=== PATIENT | male | born 1940 | race Caucasian/White ===

== ENCOUNTER 2017-10-31 05:23 | Inpatient (IN) | payer OTHER, BC ==
[~2017-10-31] VITALS: Ht 185.4 cm; Wt 111.2 kg
--- NOTE | ~2017-10-31 | EKG ---
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 11/10/17 0804 0937 0937 Porter Phillip MD, [facility] /EPI
--- NOTE | ~2017-10-31 | EKG ---
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 11/03/17 1708 1507 150 Porter Phillip MD, [facility] /EPI
--- NOTE | ~2017-10-31 | 2DMMODE ---
[address] [address] 2 D/M-MODE ECHOCARDIOGRAM Name: PAXTON PEDERSEN Room #: 247-P ADM IN M.R.#: [id number] Admission: 11/03/17 Attend Phys: Markus Dodge, Discharge: Date of : 42 Date of Service: 11/07/17 0822 Report #: [id number] THIS REPORT FOR: //name// APPROVED REPORT Study performed: 11/06/2017 17:38:27 EXAM: Comprehensive 2D, Doppler, and color-flow Echocardiogram Patient Location: Lab Room #: [facility] Status: stat BSA: 2.21 HR: 112 bpm Other Information Study Quality: Adequate Indications Arrhythmia Aortic Valve AoV Peak Kong.: 2.78 m/s AO Peak Gr.: 30.91 mmHg Left Ventricle The left ventricle is normal size. There is normal LV segmental wall motion. Moderate to severe concentric left ventricular hypertrophy. Left ventricular systolic function is normal. The left ventricular ejection fraction is within the normal range. LVEF is 60-65%. Right Ventricle The right ventricle is normal size. Aortic Valve Prosthetic aortic valve. Normal prosthetic aortic valve gradient. No aortic regurgitation is present. Mitral Valve There is mitral annular calcification. Tricuspid Valve The tricuspid valve is normal in structure. There is no tricuspid valve regurgitation noted. [address] [place] [address] 2 D/M-MODE ECHOCARDIOGRAM Name: PAXTON PEDERSEN Room #: 247-P [facility] IN M.R.#: [id number] Admission: 11/03/17 Attend Phys: Markus Dodge, Discharge: Date of : 42 Date of Service: 11/07/17821 Report #: [id number] Pericardium There is no pericardial effusion. <Conclusion> The left ventricle is normal size. Moderate to severe concentric left ventricular hypertrophy. There is normal LV segmental wall motion. LVEF is 60-65%. Prosthetic aortic valve. Normal prosthetic aortic valve gradient. There is no pericardial effusion. <ELECTRONICALLY SIGNED> By: Constantine Kelly MD, FACC 11/07/17821 1 1 Constantine Kelly MD, FACC /INF
--- NOTE | ~2017-10-31 | HC ---
[facility] [place] [address] CONSULTATION Name: PAXTON PEDERSEN Room #: 214-P [facility] IN M.R.#: [id number] Admission: 11/03/17 Attend Phys: Markus Dodge MD Discharge: Date of : 41 Report #: [id number] THIS REPORT FOR: //name// CC: Rico Dodge DATE OF SERVICE: 11/07/2017 INFECTIOUS DISEASE CONSULTATION REASON FOR CONSULTATION: Low-grade fever. ATTENDING PHYSICIAN: Markus Dodge MD. CONSULTATION REQUESTED BY: Beto Bueno MD. HISTORY OF PRESENT ILLNESS: The patient is a 76-year-old white man, found to have heart murmur by nurse practitioner, referred to Dr. Acosta, who requested consultation with Dr. Dodge. The patient undergoes aortic valve replacement with 25 mm Martinez Magna Ease bovine pericardial bioprosthesis, coronary artery bypass grafting x 2 with left radial artery harvesting on 11/03/2017. The patient developed complete heart block yesterday requiring emergent permanent pacemaker. Today, the patient is already extubated, alert, comfortable, mentally clear according to , and previously he was rather confused. The patient denies having pain in the surgical sites. He did complain to his of burning on urination and Molina catheter was irrigated. PAST MEDICAL HISTORY: 1. Diabetes mellitus. 2. Hypertension. 3. Dyslipidemia. 4. Coronary artery disease, aortic stenosis, status post surgical intervention as above. SOCIAL HISTORY: . One biological daughter, who have congenital heart condition. DRUG ALLERGIES: STATINS. MEDICATIONS: Zosyn IV every 8 hours, vancomycin 1 g every 12 hours x 4 doses I believe, p.r.n. ondansetron, p.r.n. hydrocodone, bisacodyl, metoclopramide, potassium supplementation and magnesium supplementation per protocol, insulin lispro, pressors as needed, metformin 1 g p.o. b.i.d. REVIEW OF SYSTEMS: As above. [address] [address] CONSULTATION Name: PAXTON PEDERSEN Room #: 214-P [facility] IN M.R.#: [id number] Admission: 11/03/17 Attend Phys: Markus Dodge MD Discharge: Date of : 41 Report #: [id number] PHYSICAL EXAMINATION: GENERAL: Well-developed man, not toxic looking, no distress. VITAL SIGNS: Temperature maximum 100.5 at 4:00 p.m. yesterday, pulse 74, respirations 25, BP 126/56, height 6 feet 1 inch, weight 240 pounds. HEENMT: Within range. NECK: Supple, no thyromegaly. CHEST: Medial sternotomy wound clean. Left infraclavicular permanent pacemaker wound clean. Left forearm radial artery harvesting wound clean. LUNGS: Few basilar crackles, left base. HEART: S1, S2. No gallop or murmur. ABDOMEN: Soft, no masses or megaly. GENITALIA: Molina catheter in place. RECTAL: Deferred. EXTREMITIES: Right radial artery catheter. No pretibial edema, clubbing, or cyanosis. NEUROLOGIC: Grossly within normal limits. LABORATORY DATA: Sodium 138, potassium 4.1, CO2 29, BUN 35, creatinine 1.1, glucose 231. Lactic acid normal yesterday. WBC up to 20,200 at 5:00 p.m. yesterday, hemoglobin 13.5, platelets 170,000. White blood cell count today is 11,300, hemoglobin 11.6 g/dL, platelets 141,000. ABG is pH 7.47, pCO2 37, pO2 74.3, bicarbonate 24.2. This set of gas is on FIO2 of 40%. MRSA by PCR negative on 10/31/2017. RADIOLOGY EVALUATION: Chest x-ray bases. ASSESSMENT: 1. Fever, undetermined source. 2. Status post aortic valve replacement with bioprosthetic valve and coronary artery bypass x 2 11/03/2017. 3. Permanent pacemaker for complete heart block on 11/06/2017. 4. Azotemia, improved. 5. Leukocytosis, improved. SUGGESTIONS: Repeat MRSA screen. Obtain UA with reflex culture. Few doses of vancomycin and Zosyn and discontinue if continues improvement. Dr. Bueno, thank you for requesting my suggestions. <ELECTRONICALLY SIGNED> By: David Bueno MD 11/09/17 0647 1016 2317 David Bueno MD /nt
--- NOTE | ~2017-10-31 | EKG ---
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
--- NOTE | ~2017-10-31 | EKG ---
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 11/03/17 0820 3 Porter Phillip MD, FACC /EPI
--- NOTE | ~2017-10-31 | EKG ---
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 11/07/17 0851 1628 1628 Porter Phillip MD, [facility] /EPI
--- NOTE | ~2017-10-31 | HC ---
[facility] [address] CONSULTATION Name: PAXTON PEDERSEN Room #: 242-P ADM IN M.R.#: [id number] Admission: 11/03/17 Attend Phys: Markus Dodge MD Discharge: Date of : 42 Report #: [id number] THIS REPORT FOR: //name// CC: Rico Dodge REQUESTING PHYSICIAN: Markus Dodge MD PRIMARY WINE BLENDER: Rico Acosta MD [facility] PRIMARY CARE DOCTOR: Angela Burr DO CHIEF COMPLAINT: Postop open heart surgery. HISTORY OF PRESENT ILLNESS: The patient is a 76-year-old male who underwent elective 2-vessel CABG and aortic valve replacement with Dr. Dodge yesterday. He has a history of severe aortic valve stenosis and underwent aortic valve replacement with a 25 mm Martinez bovine pericardial tissue prosthesis and 2-vessel CABG with a WILCOX to LAD and radial graft in a Y graft fashion to diagonal coronary artery. He has normal LV function. Clinically, he is doing well. He has already been extubated and is taking p.o. He is sitting in a chair. He is in a sinus rhythm on amiodarone. He was hypertensive postoperatively and required Cardene, which has since been turned off. He denies headaches, blurry vision, slurred speech, numbness, extremity numbness, weakness or chest pain. He does have chest wall pain. He had a chest x-ray this morning, which demonstrated normal cardiopulmonary findings postoperatively. PAST MEDICAL HISTORY: Coronary artery disease, aortic valve stenosis, statin intolerance, hyperlipidemia, diabetes mellitus type 2, hypertension. SOCIAL HISTORY: He is a nonsmoker. ALLERGIES: STATINS apparently caused nausea. HOME MEDICATIONS: Include calcium carbonate, glyburide 10 mg in the daytime and 5 mg in the evening. He is on Levemir 25 units daily. He is on metformin 1 gram p.o. b.i.d., Toprol-XL, which he takes b.i.d. 25 mg. REVIEW OF SYSTEMS: GASTROINTESTINAL: Denies abdominal pain, nausea, vomiting, hematemesis or melena. He has not had a bowel movement. [facility] [address] [place] [address] CONSULTATION Name: PAXTON PEDERSEN Room #: 242-P [facility] IN ..#: [id number] Admission: 11/03/17 Attend Phys: Markus Dodge MD Discharge: Date of : 41 Report #: [id number] PULMONARY: Has no history of obstructive lung disease or asthma. NEUROLOGIC: Denies slurred speech. HEMATOLOGIC: No anemia or bleeding disorders. RENAL: No history of kidney failure. ENDOCRINE: Positive diabetes, positive hyperlipidemia. CARDIOVASCULAR: Positive shortness of breath, no chest discomfort, no orthopnea, no PND, no edema. No history of arrhythmia. ALLERGIES: Denies any aspirin or contrast allergies. THROAT: Denies any dysphagia. EYES: Denies ANY visual changes. SKIN: No rashes. PHYSICAL EXAMINATION: VITAL SIGNS: Blood pressure 105/60 in sinus rhythm, heart rate 75, O2 sat is 99% on O2 per nasal cannula. GENERAL: This is a pleasant elderly male. He is alert, sitting in a chair, no apparent distress. HEENT: Eyes: EOMs intact. No facial asymmetry. NECK: Supple. No jugular venous distention. There is a right IJ triple lumen catheter, which has clean site with no bleeding or swelling. CARDIOVASCULAR: Regular. There is no rub or gallop. There is no murmur. LUNGS: Diminished breath sounds bilaterally, but clear to auscultation. SKIN: Clean, dry dressing over his sternal incision. ABDOMEN: Nontender, nondistended. EXTREMITIES: Distal extremities are warm. He is wearing SCDs. Telemetry demonstrates a sinus rhythm, normal ST segments. LABORATORY DATA: Hemoglobin is 12.1, white blood cell count is 13.6, platelet count is 140,000. Sodium is 141, potassium is 4.1, chloride is 106, CO2 is 29, BUN 16, creatinine is 1.0, glucose is 133. INR is 1.2. Chest x-ray shows poor, but improved inspiration, borderline cardiomegaly, moderate widening of the mediastinum, which was actually improved from prior study yesterday. No pneumothorax. IMPRESSION: 1. Coronary artery disease, status post 2-vessel coronary artery bypass graft. He is postoperative day 1 and doing well hemodynamically. He is taking p.o. and demonstrates a sinus rhythm. We will continue with p.o. amiodarone for atrial fibrillation prevention. 2. Status post aortic valve replacement. He has tissue prosthesis and will begin warfarin upon discharge. For the time being, he is currently on aspirin. 3. Hypertension. This is stable. We will monitor this closely and resume his beta melisa at some point when he is taking p.o. more consistently. 4. Diabetes mellitus. He is followed by our hospitalist colleagues for diabetic management. Currently, he is on insulin. [facility] [address] [place] [address] CONSULTATION Name: PAXTON PEDERSEN Room #: 242-P ADM IN M.R.#: [id number] Admission: 11/03/17 Attend Phys: Markus Dodge MD Discharge: Date of : 41 Report #: [id number] 5. Hyperlipidemia. He apparently is statin intolerant with an allergy, but perhaps he can be started on Zetia at a later date. By: 0833 1212 Constantine Kelly MD, FACC /nt
--- NOTE | ~2017-10-31 | P ---
[facility] [place] [address] PROCEDURE REPORT Name: PAXTON PEDERSEN Room #: 214-P [facility] IN M.R.#: [id number] Admission: 11/03/17 Attend Phys: Markus Dodge MD Discharge: 11/11/17 Date of : 41 Report #: [id number] THIS REPORT FOR: //name// CC: Rico Dodge PROCEDURE: Pacemaker insertion. PREOPERATIVE DIAGNOSIS: Complete heart block. POSTOPERATIVE DIAGNOSIS: Complete heart block. HISTORY OF PRESENT ILLNESS: The patient is a 76-year-old who is status post CABG and mitral valve replacement with a bioprosthetic valve, who tonight developed complete heart block with no underlying rhythm. He required a transcutaneous pacing that was partially successful. He is here for temporary wire placement and a dual-chamber pacemaker insertion. ANESTHESIA: The patient was already under general anesthesia prior to initiation of the procedure. DESCRIPTION OF PROCEDURE: The patient was emergently taken to the catheterization laboratory technician in the middle of a code situation. The patient was brought to the EP laboratory and was pacing transcutaneously, which was intermittently capturing. I did happen to speak to his prior to performing the procedure and discussed the details of the procedure, including the risks which included but not limited to bleeding, infection, vascular damage, cardiac perforation and pneumothorax. He understood these risks and was willing for me to proceed emergently. As such, I obtained access to the right femoral vein x 1 and placed a short sheath using the modified Seldinger technique. I then advanced a quadripolar catheter into the right ventricular apex and performed apical pacing with good thresholds. As such, I was now able to turn off external pacing. The patient was then prepped in a sterile fashion. A venogram was performed, showing patency of the left axillary vein. IV vancomycin was administered. The patient was prepped in a sterile fashion. I then injected lidocaine below the level of the left clavicle. Incision was made, pocket was created over the prepectoral fascia and access was obtained twice to the left axillary vein using the extrathoracic approach. Leads were positioned in the right ventricular apex and right atrial appendage, both with adequate pacing and sensing thresholds, and the leads were sutured to the prepectoral fascia. The device was connected to the leads. The pocket was irrigated with vancomycin and then the pocket was closed in 3 layers using 2-0 for the deep layer, 3-0 for the mid layer and 4-0 for the subcuticular stitch. Surgical glue was placed to the outer skin layer. The patient was stable post-procedure, with stable blood pressures and remained intubated. There were no intra-procedure complications and there was 10 mL of [facility] [address] [address] PROCEDURE REPORT Name: NUVIAPAXTON E Room #: 214-P [facility] IN M.R.#: [id number] Admission: 11/03/17 Attend Phys: Markus Dodge MD Discharge: 11/11/17 Date of : 41 Report #: [id number] blood loss. While I was closing the pocket, the temporary pacing wire was pulled under fluoroscopy. There was no displacement of the pacing leads. The implanted pacemaker was a [employer] model #[id number], serial #[id number]. The atrial lead was [employer] model #2088TC, 52 cm, serial #[id number] with a P-wave of 1.2 millivolts, pacing impedance of 380 ohms and a pacing threshold of 0.75 volts at 0.4 milliseconds. The RV lead was [employer] model #2088TC, 58 cm, serial #[id number]. The RV lead demonstrated an R-wave of 7.3 millivolts, pacing impedance of 480 ohms and the pacing threshold 0.5 volts at 1 millisecond. The pacemaker was programmed to the DDD 60-130 mode. CONCLUSIONS: 1. Successful emergent placement of a temporary pacing wire for complete heart block, with no underlying rhythm. 2. Successful dual-chamber pacemaker insertion. 3. Satisfactory atrial and ventricular pacing and sensing thresholds. <ELECTRONICALLY SIGNED> By: Beto Bueno MD 11/13/17 0827 1927 0025 Beto Bueno MD /nt
--- NOTE | ~2017-10-31 | HC ---
[facility] [place] [address] CONSULTATION Name: PAXTON PEDERSEN Room #: 214-P [facility] IN ..#: [id number] Admission: 11/03/17 Attend Phys: Markus Dodge MD Discharge: 11/11/17 Date of : 41 Report #: [id number] THIS REPORT FOR: //name// CC: Rico Dodge ELECTROPHYSIOLOGY CONSULTATION REASON FOR CONSULTATION: Acute complete heart block. HISTORY OF PRESENT ILLNESS: The patient is a 76-year-old with a history of aortic stenosis and coronary artery disease who underwent elective bioprosthetic AVR and CABG on 11/03/2017. He was doing well and was recovering nicely. His EKG had been stable and therefore his temporary pacing wires were pulled today. This evening, I was called after the patient went into a complete heart block with no underlying ventricular escape rhythm. He required CPR, intubation and external pacing. He has periods of conduction with periods of asystole. Currently during my evaluation, he still requires intermittent pacing. PAST MEDICAL HISTORY: Includes coronary artery disease, aortic stenosis, hyperlipidemia, diabetes, and hypertension. SOCIAL HISTORY: He does not smoke. FAMILY HISTORY: Noncontributory. ALLERGIES: INCLUDES STATINS. MEDICATIONS: Have been reviewed. He has had some aspirin, metoprolol, amiodarone, Lasix, insulin. REVIEW OF SYSTEMS: Unable to obtain. PHYSICAL EXAMINATION: VITAL SIGNS: Temp is 36.9, T-max 38.1, pulse 70, respiratory rate 18, blood pressure 106/57, sats 100%. GENERAL: He is intubated and sedated in the middle of a code. HEART: Regular rate and rhythm when paced. EXTREMITIES: No lower extremity edema. LABORATORY DATA: A pH 7.3, pCO2 of 37, pO2 of 216. White count 20, hemoglobin 13, platelets 170. Sodium 133, potassium 3.6, BUN 37, creatinine 1.8, magnesium 2.5. EKG and telemetry shows periods of complete heart block and asystole. Chest x-ray shows no significant findings post extubation. ASSESSMENT AND PLAN: Complete heart block requiring external pacing. In [facility] [address] [place] [address] CONSULTATION Name: PAXTON PEDERSEN Room #: 214-P [facility] IN .R.#: [id number] Admission: 11/03/17 Attend Phys: Markus Dodge MD Discharge: 11/11/17 Date of : 41 Report #: [id number] summary, the patient is a 76-year-old with complete heart block. We will start by placing a temporary pacing wire and it appears he will need a permanent pacemaker placed. We will continue with IV antibiotics and continue to follow the patient postoperatively. This procedure is being performed semi-emergently after discussing the care with Dr. Dodge. <ELECTRONICALLY SIGNED> By: Beto Bueno MD 11/13/17 0827 1736 0037 Beto Bueno MD /karla
--- NOTE | ~2017-10-31 | O ---
[facility] [place] [address] OPERATIVE REPORT Name: PAXTON PEDERSEN Room #: 242-P ADM IN M.R.#: [id number] Admission: 11/03/17 Attend Phys: Markus Dodge MD Discharge: Date of : 41 Report #: [id number] THIS REPORT FOR: //name// CC: Rico Dodge DATE OF SERVICE: 11/03/2017 PREOPERATIVE DIAGNOSES: 1. Aortic stenosis, severe. 2. Coronary artery disease. FINAL DIAGNOSES: 1. Aortic stenosis, severe. 2. Coronary artery disease. OPERATIVE PROCEDURE PERFORMED: 1. Aortic valve replacement with 25 mm Martinez Magna Ease bovine pericardial bioprosthesis. 2. Coronary artery bypass grafting x 2 with WILCOX to the LAD, a radial artery Y graft to diagonal vessel. 3. Left radial artery harvest. SURGEON: Markus Dodge MD ARM REST BUILDER: ALTAGRACIA Kat. ANESTHESIA: General. OPERATIVE INDICATIONS: The patient is a 76-year-old male who presented with symptoms of severe dyspnea on exertion and fatigue. The patient has undergone evaluation with echocardiography showing evidence of severe aortic stenosis. He was found to have concomitant coronary artery disease involving the LAD and diagonal vessel. There was also poor filling of the PDA by collaterals from the left, but it was unclear if a bypassable vessel was present. The patient is admitted at this time and brought to the operating room now for aortic valve replacement and concomitant coronary artery bypass grafting. OPERATIVE SUMMARY: The patient brought to the operating room, placed on the OR table in supine position. After anesthesia was induced via the general endotracheal route and monitoring lines had been positioned, the patient was prepped and draped in a sterile fashion with chlorhexidine. I first performed radial artery harvest from the left forearm using a Harmonic scalpel. This incision was closed in standard fashion in 3 layers. I then performed median [facility] [address] [place] [address] OPERATIVE REPORT Name: PAXTON PEDERSEN Room #: 242-P [facility] IN [facility].#: [id number] Admission: 11/03/17 Attend Phys: Markus Dodge MD Discharge: Date of : 41 Report #: [id number] sternotomy incision and the left internal mammary artery was harvested in standard fashion. I then opened the pericardium and systemically anticoagulated the patient with heparin, cannulae were placed in ascending aorta and the right atrium. An antegrade cardioplegic cannula was positioned and cardiopulmonary bypass was begun. A retrograde cardioplegic cannula was positioned and then under low flow conditions the aorta was cross clamped, the heart was arrested with cold antegrade cardioplegia approximately 1 liter followed by 500 mL cold retrograde cardioplegia. This was augmented with topical ice slush. Diastolic arrest was achieved and maintained throughout this operation with intermittent doses of cold antegrade and retrograde cardioplegia as well as cardioplegia given down grafts and topical ice slush. We first examined the PDA. We found this vessel to be heavily calcified and sclerotic and unapproachable for bypass. I then turned my attention to the diagonal vessel. It was a nice soft vessel. I opened at least 2 mm in size, a distal anastomosis was carried out in end-to-side fashion with 7-0 Prolene utilizing the radial artery. Next, we turned our attention to the aortic valve. A transverse aortotomy was created 1-2 cm above the right coronary artery takeoff. We exposed the aortic valve. There was severe calcific aortic stenosis present. The valve leaflets were excised. The annulus was debrided of significant calcium. We then measured the valve and felt that a 25 mm bovine pericardial Magna Ease bioprosthesis would be appropriate. A 2-0 Ethibond sutures were then placed in the annulus circumferentially from the ventricular to the aortic side of the annulus. These sutures were then brought up through the sewing rim of the valve, the valve was seated and the sutures were secured in place using Cor-Knots. The aortotomy was closed in 2 layers with running 4-0 Prolene suture. Next, the WILCOX was brought into the field. The LAD was opened. It was a large vessel, greater than 2.5 mm in size. A distal anastomosis was carried out in the end-to-side fashion with 7-0 Prolene. We then constructed an end-to-side anastomosis of the radial artery graft to the WILCOX after a WILCOX arteriotomy was made. This was done with 7-0 Prolene as well. Warm cardioplegia was then given both retrograde and antegrade. The patient was placed in steep Trendelenburg and de-airing maneuvers were performed while retrograde and antegrade warm cardioplegia were given. This was performed with an 18 gauge needle through the left ventricular apex. Blood was held in the heart and lungs were ventilated during these episodes. Under low flow conditions the aortic crossclamp was released to begin the period of reperfusion and similar de-airing maneuvers were performed yet again and then the patient was placed in the supine position. Atrial and ventricular pacing wires were placed and the patient was rewarmed past 37 degree centigrade. Three successive doses of calcium and single dose of magnesium were given over 3-5 minute intervals. Lungs were reinflated. The patient was allowed to eject and we found appropriate de-airing on NURY. We then removed the aortic root vent and then weaned the patient from cardiopulmonary bypass without inotropic support. Protamine was given to reverse the heparin, decannulation was effected. Once satisfactory hemostasis was achieved, we placed two 32-[place] chest tubes in [facility] [address] [place] [address] OPERATIVE REPORT Name: PAXTON PEDERSEN Room #: 242-P ADM IN M.R.#: [id number] Admission: 11/03/17 Attend Phys: Markus Dodge MD Discharge: Date of : 41 Report #: [id number] anterior mediastinum and 24 Lorenzo drain in left pleural space. They were all brought through separate stab incisions. The sternum was closed with #7 wire. The fascia, subcutaneous and skin were closed in multiple layers with absorbable suture. The procedure completed, the patient was taken to the ICU in stable condition. Cardiopulmonary bypass time and crossclamp times are not available to me at the time of this dictation. By: [id number] /nt
[2017-10-31 12:44] LABS: URINE BILIRUBIN NEGATIVE (Negative); URINE BLOOD NEGATIVE (Negative); URINE CLARITY CLEAR; URINE COLOR YELLOW; URINE GLUCOSE-RANDOM* 1+ (Negative); URINE KETONES NEGATIVE (Negative); URINE LEUKOCYTES-REFLEX NEGATIVE (Negative); URINE NITRITE-REFLEX NEGATIVE (Negative); URINE PROTEIN (DIPSTICK) NEGATIVE (Negative); URINE SPECIFIC GRAVITY 1.025 (1.005-1.035); URINE UROBILINOGEN 0.2 E.U./dl (0.2-1.0)
[2017-10-31 12:46] LABS: ABSOLUTE NEUTROPHILS 4.3 thou/uL (1.4-8.2); EOSINOPHILS 2.5 % (0.0-3.0); HEMATOCRIT 43.3 % (42.0-52.0); LYMPHOCYTES 30.1 % (24.0-44.0); MCH 32.3 pg (26.0-34.0); MCHC 34.7 g/dL (28.0-37.0); MCV 93.1 fL (80.0-100.0); MONOCYTES 7.4 % (1.0-8.0); PLATELET COUNT 205 thou/uL (150-400); RBC 4.65 mil/uL (4.50-6.00); RDW 13.8 % (10.5-14.5); WBC 7.2 thou/uL (4.0-11.0)
[2017-10-31 13:01] LABS: APTT 28.5 Seconds (24.5-32.8); CALCIUM 9.3 mg/dL (8.5-10.1); CREATININE 1.1 mg/dL (0.7-1.3); INR 1.1; POTASSIUM 4.3 mmol/L (3.5-5.1); PROTIME 11.1 Seconds (9.3-11.4); TOTAL BILIRUBIN 0.5 mg/dL (<0.1-1.0); TOTAL PROTEIN 8.2 g/dL (6.4-8.2)
[2017-10-31 23:07] LABS: GLYCOHEMOGLOBIN (HGB A1C) 7.4 % (4.8-5.6)
[2017-11-03] VITALS (12 sets, daily range): BP systolic 89–169; BP diastolic 54–80
[2017-11-03 13:13] LABS: HEMATOCRIT 33.2 % (42.0-52.0); MCH 32.2 pg (26.0-34.0); MCHC 34.5 g/dL (28.0-37.0); MCV 93.4 fL (80.0-100.0); RBC 3.56 mil/uL (4.50-6.00); RDW 13.7 % (10.5-14.5)
[2017-11-03 13:14] LABS: HEMOGLOBIN 11.5 gm/dL (14.0-18.0)
[2017-11-03 13:28] LABS: APTT 24.5 Seconds (24.5-32.8); FIBRINOGEN 190.9 mg/dL (210-360); INR 1.4
[2017-11-03 14:03] LABS: POC BE 2 mmol/L (-2.0 to +3.0); POC CA IONIZED 4.7 mg/dL (4.5-5.3); POC GLUCOSE 154 mg/dL (70-99); POC HCO3 27.3 mmol/L (22.0-26.0); POC HEMOGLOBIN 11.2 g/dL (14.0-18.0); POC POTASSIUM 4.4 mmol/L (3.5-5.1); POC SODIUM 141 mmol/L (136-145); POC pCO2 44.4 mmHg (35.0-45.0); POC pH 7.397 (7.360-7.450)
[2017-11-03 14:03] LABS: POC BE 1 mmol/L (-2.0 to +3.0); POC CA IONIZED 6.3 mg/dL (4.5-5.3); POC GLUCOSE 146 mg/dL (70-99); POC HCO3 25.3 mmol/L (22.0-26.0); POC HEMOGLOBIN 10.9 g/dL (14.0-18.0); POC POTASSIUM 3.9 mmol/L (3.5-5.1); POC SODIUM 141 mmol/L (136-145); POC pCO2 38.5 mmHg (35.0-45.0); POC pH 7.425 (7.360-7.450)
[2017-11-03 14:03] LABS: POC BE 3 mmol/L (-2.0 to +3.0); POC CA IONIZED 4.8 mg/dL (4.5-5.3); POC GLUCOSE 145 mg/dL (70-99); POC HCO3 28.2 mmol/L (22.0-26.0); POC HEMOGLOBIN 11.2 g/dL (14.0-18.0); POC POTASSIUM 4.3 mmol/L (3.5-5.1); POC SODIUM 143 mmol/L (136-145); POC pCO2 49.5 mmHg (35.0-45.0); POC pH 7.364 (7.360-7.450)
[2017-11-03 14:03] LABS: POC BE 1 mmol/L (-2.0 to +3.0); POC CA IONIZED 4.8 mg/dL (4.5-5.3); POC GLUCOSE 184 mg/dL (70-99); POC HCO3 26.5 mmol/L (22.0-26.0); POC HEMOGLOBIN 12.2 g/dL (14.0-18.0); POC POTASSIUM 4.5 mmol/L (3.5-5.1); POC SODIUM 140 mmol/L (136-145)
[2017-11-03 14:03] LABS: POC BE 0 mmol/L (-2.0 to +3.0); POC CA IONIZED 6.1 mg/dL (4.5-5.3); POC GLUCOSE 126 mg/dL (70-99); POC HCO3 24.2 mmol/L (22.0-26.0); POC HEMOGLOBIN 11.2 g/dL (14.0-18.0); POC POTASSIUM 3.8 mmol/L (3.5-5.1); POC SODIUM 142 mmol/L (136-145); POC pCO2 37.6 mmHg (35.0-45.0); POC pH 7.417 (7.360-7.450)
[2017-11-03 14:03] LABS: POC BE 1 mmol/L (-2.0 to +3.0); POC CA IONIZED 4.4 mg/dL (4.5-5.3); POC GLUCOSE 170 mg/dL (70-99); POC HCO3 26.5 mmol/L (22.0-26.0); POC HEMOGLOBIN 10.9 g/dL (14.0-18.0); POC POTASSIUM 4.7 mmol/L (3.5-5.1); POC SODIUM 139 mmol/L (136-145); POC pCO2 44.8 mmHg (35.0-45.0)
[2017-11-03 14:03] LABS: POC BE 2 mmol/L (-2.0 to +3.0); POC CA IONIZED 4.7 mg/dL (4.5-5.3); POC GLUCOSE 146 mg/dL (70-99); POC HCO3 26.7 mmol/L (22.0-26.0); POC HEMOGLOBIN 10.5 g/dL (14.0-18.0); POC POTASSIUM 4.2 mmol/L (3.5-5.1); POC SODIUM 142 mmol/L (136-145); POC pCO2 40.1 mmHg (35.0-45.0); POC pH 7.431 (7.360-7.450)
[2017-11-03 14:03] LABS: POC BE 2 mmol/L (-2.0 to +3.0); POC CA IONIZED 4.7 mg/dL (4.5-5.3); POC GLUCOSE 151 mg/dL (70-99); POC HCO3 26.6 mmol/L (22.0-26.0); POC HEMOGLOBIN 10.9 g/dL (14.0-18.0); POC SODIUM 143 mmol/L (136-145); POC pCO2 41.5 mmHg (35.0-45.0); POC pH 7.415 (7.360-7.450)
[2017-11-03 14:03] LABS: POC BE 3 mmol/L (-2.0 to +3.0); POC GLUCOSE 233 mg/dL (70-99); POC HCO3 28.6 mmol/L (22.0-26.0); POC HEMOGLOBIN 13.3 g/dL (14.0-18.0); POC POTASSIUM 4.9 mmol/L (3.5-5.1); POC SODIUM 139 mmol/L (136-145); POC pCO2 48.9 mmHg (35.0-45.0); POC pH 7.375 (7.360-7.450)
[2017-11-03 14:34] LABS: HEMATOCRIT 36.9 % (42.0-52.0); HEMOGLOBIN 12.3 gm/dL (14.0-18.0); MCH 31.5 pg (26.0-34.0); MCHC 33.5 g/dL (28.0-37.0); MCV 94.2 fL (80.0-100.0); RBC 3.92 mil/uL (4.50-6.00); RDW 13.8 % (10.5-14.5); WBC 14.3 thou/uL (4.0-11.0)
[2017-11-03 14:48] LABS: CALCIUM 9.5 mg/dL (8.5-10.1); CREATININE 1.1 mg/dL (0.7-1.3); MAGNESIUM 1.7 mg/dL (1.8-2.4); POTASSIUM 4.4 mmol/L (3.5-5.1)
[2017-11-03 14:49] LABS: APTT 28.5 Seconds (24.5-32.8); INR 1.2; PROTIME 12.3 Seconds (9.3-11.4)
[2017-11-03 14:50] LABS: BE(vivo) -3.7 mmol/L (-2 to +3); HCO3 22.7 mmol/L (22.0-26.0); PCO2 46.3 mmHg (35.0-45.0); PO2 70.7 mmHg (80.0-100.0); pH 7.308 (7.360-7.450); sO2 92.7 % (92.0-98.0)
[2017-11-03 17:28] LABS: BE(vivo) -2.8 mmol/L (-2 to +3); HCO3 22.2 mmol/L (22.0-26.0); PCO2 39.3 mmHg (35.0-45.0); PO2 114.6 mmHg (80.0-100.0); pH 7.369 (7.360-7.450); sO2 98.1 % (92.0-98.0)
[2017-11-03 18:42] LABS: HEMATOCRIT 33.2 % (42.0-52.0)
[2017-11-03 19:17] LABS: HEMOGLOBIN 11.3 gm/dL (14.0-18.0)
[2017-11-03 21:14] LABS: BE(vivo) -2.8 mmol/L (-2 to +3); HCO3 22.7 mmol/L (22.0-26.0); PCO2 42.1 mmHg (35.0-45.0); PO2 89.3 mmHg (80.0-100.0); pH 7.349 (7.360-7.450); sO2 96.4 % (92.0-98.0)
[2017-11-03 22:02] LABS: BE(vivo) -2.7 mmol/L (-2 to +3); HCO3 22.2 mmol/L (22.0-26.0); PCO2 39.1 mmHg (35.0-45.0); pH 7.373 (7.360-7.450); sO2 94.8 % (92.0-98.0)
[2017-11-04] VITALS (134 sets, daily range): BP systolic 86–124; BP diastolic 53–89
[2017-11-04 05:23] LABS: HEMATOCRIT 35.9 % (42.0-52.0); HEMOGLOBIN 12.1 gm/dL (14.0-18.0); MCH 31.6 pg (26.0-34.0); MCHC 33.7 g/dL (28.0-37.0); MCV 93.7 fL (80.0-100.0); RBC 3.83 mil/uL (4.50-6.00); WBC 13.6 thou/uL (4.0-11.0)
[2017-11-04 05:34] LABS: CALCIUM 9.1 mg/dL (8.5-10.1); MAGNESIUM 1.8 mg/dL (1.8-2.4); POTASSIUM 4.1 mmol/L (3.5-5.1)
[2017-11-05] VITALS (22 sets, daily range): BP systolic 96–130; BP diastolic 59–77
[2017-11-05 05:59] LABS: HEMATOCRIT 34.6 % (42.0-52.0); HEMOGLOBIN 11.6 gm/dL (14.0-18.0); MCH 31.6 pg (26.0-34.0); MCHC 33.4 g/dL (28.0-37.0); MCV 94.4 fL (80.0-100.0); RBC 3.67 mil/uL (4.50-6.00); RDW 13.8 % (10.5-14.5); WBC 14.8 thou/uL (4.0-11.0)
[2017-11-05 06:11] LABS: CREATININE 1.2 mg/dL (0.7-1.3); POTASSIUM 4.6 mmol/L (3.5-5.1)
[2017-11-06 04:30] VITALS: BP 117/67
[2017-11-06 05:59] LABS: HEMATOCRIT 35.7 % (42.0-52.0); HEMOGLOBIN 12.1 gm/dL (14.0-18.0); MCH 31.8 pg (26.0-34.0); MCHC 33.9 g/dL (28.0-37.0); MCV 93.8 fL (80.0-100.0); RBC 3.81 mil/uL (4.50-6.00); RDW 13.6 % (10.5-14.5); WBC 13.4 thou/uL (4.0-11.0)
[2017-11-06 06:00] LABS: CALCIUM 8.8 mg/dL (8.5-10.1); CREATININE 1.2 mg/dL (0.7-1.3); POTASSIUM 4.5 mmol/L (3.5-5.1)
[2017-11-06 08:00] VITALS: BP 110/70
[2017-11-06 12:00] VITALS: BP 125/71
[2017-11-06 16:00] VITALS: BP 106/57
[2017-11-06 17:08] LABS: HEMATOCRIT 40.6 % (42.0-52.0); HEMOGLOBIN 13.5 gm/dL (14.0-18.0); MCH 31.5 pg (26.0-34.0); MCHC 33.1 g/dL (28.0-37.0); MCV 95.2 fL (80.0-100.0); RBC 4.27 mil/uL (4.50-6.00); WBC 20.2 thou/uL (4.0-11.0)
[2017-11-06 17:15] LABS: CALCIUM 9.2 mg/dL (8.5-10.1); CREATININE 1.8 mg/dL (0.7-1.3); POTASSIUM 3.6 mmol/L (3.5-5.1)
[2017-11-06 17:16] LABS: MAGNESIUM 2.5 mg/dL (1.8-2.4)
[2017-11-06 17:18] LABS: BE(vivo) -2.5 mmol/L (-2 to +3); PCO2 37.1 mmHg (35.0-45.0); PO2 216.2 mmHg (80.0-100.0); pH 7.391 (7.360-7.450); sO2 99.4 % (92.0-98.0)
[2017-11-06 20:52] LABS: BE(vivo) 1.1 mmol/L (-2 to +3); HCO3 25.8 mmol/L (22.0-26.0); PCO2 41.4 mmHg (35.0-45.0); PO2 98.9 mmHg (80.0-100.0); pH 7.412 (7.360-7.450); sO2 97.6 % (92.0-98.0)
[2017-11-06 22:11] LABS: BE(vivo) 1.4 mmol/L (-2 to +3); HCO3 25.8 mmol/L (22.0-26.0); PO2 108.6 mmHg (80.0-100.0); pH 7.427 (7.360-7.450); sO2 98.1 % (92.0-98.0)
[2017-11-07 03:17] LABS: BE(vivo) 4.5 mmol/L (-2 to +3); HCO3 28.5 mmol/L (22.0-26.0); PCO2 40.2 mmHg (35.0-45.0); PO2 77.8 mmHg (80.0-100.0); pH 7.468 (7.360-7.450); sO2 96.2 % (92.0-98.0)
[2017-11-07 05:30] LABS: BE(vivo) 3.2 mmol/L (-2 to +3); HCO3 26.8 mmol/L (22.0-26.0); PCO2 37.3 mmHg (35.0-45.0); PO2 74.3 mmHg (80.0-100.0); pH 7.474 (7.360-7.450); sO2 95.8 % (92.0-98.0)
[2017-11-07 05:36] LABS: CALCIUM 8.5 mg/dL (8.5-10.1); CREATININE 1.1 mg/dL (0.7-1.3); POTASSIUM 4.1 mmol/L (3.5-5.1)
[2017-11-07 05:37] LABS: HEMOGLOBIN 11.6 gm/dL (14.0-18.0); MCH 31.7 pg (26.0-34.0); MCHC 34.1 g/dL (28.0-37.0); RBC 3.66 mil/uL (4.50-6.00); RDW 13.8 % (10.5-14.5); WBC 11.3 thou/uL (4.0-11.0)
[2017-11-07 12:27] VITALS: BP 98/66
[2017-11-07 13:12] LABS: URINE BILIRUBIN NEGATIVE (Negative); URINE BLOOD 2+ (Negative); URINE CLARITY CLEAR; URINE COLOR YELLOW; URINE GLUCOSE-RANDOM* 1+ (Negative); URINE KETONES NEGATIVE (Negative); URINE LEUKOCYTES-REFLEX NEGATIVE (Negative); URINE NITRITE-REFLEX NEGATIVE (Negative); URINE PROTEIN (DIPSTICK) NEGATIVE (Negative); URINE SPECIFIC GRAVITY 1.015 (1.005-1.035); URINE UROBILINOGEN 0.2 E.U./dl (0.2-1.0)
[2017-11-07 13:46] LABS: URIC ACID CRYSTALS >10 Many /LPF (None Seen)
[2017-11-07 13:47] LABS: BACTERIA-REFLEX 1-9 Few /HPF (None Seen); CASTS None Seen /LPF (None Seen); SQUAMOUS None Seen /LPF (0-3); URINE RBC 0-2 Rare /HPF (0-2); URINE WBC-REFLEX None Seen /HPF (0-5)
[2017-11-07 15:00] VITALS: BP 110/62
[2017-11-07 15:59] VITALS: BP 103/65
[2017-11-07 19:48] VITALS: BP 107/73
[2017-11-08] VITALS (7 sets, daily range): BP systolic 105–166; BP diastolic 62–96
[2017-11-08 16:43] LABS: HEMATOCRIT 37.5 % (42.0-52.0); HEMOGLOBIN 12.5 gm/dL (14.0-18.0); MCH 31.4 pg (26.0-34.0); MCHC 33.3 g/dL (28.0-37.0); MCV 94.4 fL (80.0-100.0); RBC 3.97 mil/uL (4.50-6.00); RDW 13.9 % (10.5-14.5); WBC 12.4 thou/uL (4.0-11.0)
[2017-11-08 16:54] LABS: CALCIUM 8.7 mg/dL (8.5-10.1); CREATININE 1.5 mg/dL (0.7-1.3)
[2017-11-09 03:48] LABS: MCH 31.7 pg (26.0-34.0)
[2017-11-09 03:51] LABS: HEMATOCRIT 33.1 % (42.0-52.0); MCHC 33.2 g/dL (28.0-37.0); MCV 95.5 fL (80.0-100.0); RBC 3.47 mil/uL (4.50-6.00); RDW 13.8 % (10.5-14.5); WBC 12.6 thou/uL (4.0-11.0)
[2017-11-09 03:56] LABS: CALCIUM 8.2 mg/dL (8.5-10.1); CREATININE 1.3 mg/dL (0.7-1.3); POTASSIUM 3.6 mmol/L (3.5-5.1)
[2017-11-09 04:14] VITALS: BP 122/61
[2017-11-09 08:00] VITALS: BP 108/73
[2017-11-09 11:00] VITALS: BP 124/82
[2017-11-09 15:40] VITALS: BP 93/59
[2017-11-09 19:17] VITALS: BP 99/66
[2017-11-10 03:10] VITALS: BP 128/72
[2017-11-10 04:47] LABS: ABSOLUTE NEUTROPHILS 9.1 thou/uL (1.4-8.2); BASOPHILS 0.8 % (0.0-2.0); EOSINOPHILS 2.7 % (0.0-3.0); HEMATOCRIT 33.4 % (42.0-52.0); HEMOGLOBIN 11.3 gm/dL (14.0-18.0); LYMPHOCYTES 12.2 % (24.0-44.0); MCHC 33.9 g/dL (28.0-37.0); MCV 94.4 fL (80.0-100.0); MONOCYTES 7.3 % (1.0-8.0); PLATELET COUNT 189 thou/uL (150-400); RBC 3.54 mil/uL (4.50-6.00); RDW 13.9 % (10.5-14.5); WBC 11.8 thou/uL (4.0-11.0)
[2017-11-10 04:53] LABS: CALCIUM 8.3 mg/dL (8.5-10.1); CREATININE 1.3 mg/dL (0.7-1.3); POTASSIUM 3.5 mmol/L (3.5-5.1)
[2017-11-10 07:35] VITALS: BP 120/76
[2017-11-10 11:30] VITALS: BP 119/64
[2017-11-10 15:50] VITALS: BP 101/64
[2017-11-10 19:45] VITALS: BP 101/48
[2017-11-11 04:32] VITALS: BP 108/62
[2017-11-11 07:30] VITALS: BP 115/60
[2017-11-11 12:59] VITALS: BP 116/62
[2017-11-11] MEDS ORDERED: NOVOLOG100 UNIT/1 SUBQ (15:13)
[2017-11-11] MEDS ORDERED: PACERONE 200 M200 M1 PO (15:13)
== END 2017-11-11 16:40 | DRG 219 ==
LOC: PRE → ICU 11-03 05:43 → TBA 11-03 05:43 → PRE 11-03 11:56 → ICU 11-03 14:18 → 2N 11-05 17:23 → ICU 11-06 16:41 → 2N 11-07 15:58
PROVIDERS: Hospitalist; Internal Medicine Cardiovascular Disease; Internal Medicine Infectious Disease; Internal Medicine Pulmonary Disease; Nurse Practitioner; Thoracic Surgery (Cardiothoracic Vascular Surgery)
DX: I25.10 Atherosclerotic heart disease of native coronary artery without angina pectoris (principal); J96.01 Acute respiratory failure with hypoxia; I46.9 Cardiac arrest, cause unspecified; I50.31 Acute diastolic (congestive) heart failure; I44.2 Atrioventricular block, complete; K56.7 Ileus, unspecified; I35.0 Nonrheumatic aortic (valve) stenosis; I11.0 Hypertensive heart disease with heart failure; E78.5 Hyperlipidemia, unspecified; E11.9 Type 2 diabetes mellitus without complications; Z79.4 Long term (current) use of insulin; Z79.82 Long term (current) use of aspirin; Z79.899 Other long term (current) drug therapy; Z88.8 Allergy status to other drugs, medicaments and biological substances
CPT/HCPCS: 10078; 10081; 47000; 47001; 47002; 47297; 47335; 47382; 50010; 50249; 50409; 50456; 50497; 50662; 50668; 51301; 52131; 52190; 52314; 53327; 53358; 55022; 56524; 56525; 56526; 56527; 56528; 56529; 56531; 56533; 56534; 56639; 57080; 57082; 57093; 62110; 62900; 62950; 64029; 65002; 65003; 65020; 65040; 65043; 65047; 65090; 83006; 85010

== ENCOUNTER → 2017-10-31 | Outpatient (CLI) | payer OTHER, BC ==
[~2017-10-31] MED LIST: ASPIR-LOW81 MG PO; FIBER TABS625 MG PO; FISH OIL 1,001000 M2 PO; GLYBURIDE 2.52.5 MG PO; GLYBURIDE 5 MG T5 M1 PO; LEVEMIR SUBQ; LISINOPRIL10 MG PO; METFORMIN HCL500 MG PO; MULTIVITAMINS1 EAC7 PO; TOPROL XL25 MG PO
== END ==
LOC: ULTRA 11:29
DX: Z01.818 Encounter for other preprocedural examination (principal); I25.10 Atherosclerotic heart disease of native coronary artery without angina pectoris; I65.23 Occlusion and stenosis of bilateral carotid arteries

== ENCOUNTER 2017-11-11 13:49 | Inpatient (IN) | payer OTHER, BC ==
[~2017-11-11] VITALS: Ht 185.4 cm; Wt 101.5 kg
--- NOTE | ~2017-11-11 | HC ---
[facility] [place] [address] CONSULTATION Name: PAXTON PEDERSEN Room #: 510-P [facility] IN M.R.#: [id number] Admission: 11/11/17 Attend Phys: Rico Calvin MD Discharge: Date of : 41 Report #: [id number] THIS REPORT FOR: //name// CC: Rico Burr ATTENDING PHYSICIAN: Rico Calvin MD FIRST LINE PRODUCTION SUPERVISOR: Adi Washburn, PhD AGE: 76 CLINICAL PRESENTATION: The patient is a 76-year-old male admitted to the rehabilitation unit at [facility] for a comprehensive inpatient rehabilitation program to improve functional mobility, activities of daily living and self-care and mental status secondary to deficits from medical complexity and generalized debility. His assessment includes gait instability, coronary artery disease, status post coronary artery bypass grafting x 2, aortic stenosis, status post aortic valve replacement, complete heart block, status post permanent pacemaker, ileus, hypertension, hyperlipidemia and type 2 diabetes mellitus. A complete description of his medical condition, history and medications can be found in his medical record. Neuropsychological consultation was requested for assistance in the assessment of cognitive and emotional status and to provide recommendations and services. Prior to this most recent admission, the patient reports living independently in his own home. He is retired and . 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 He had two children. His daughter at age 28 from heart disease. His son is living and supportive. He does not report a prior history of alcohol or drug abuse. In fact, the patient indicates he has never had any alcohol or tobacco throughout his life. TECHNIQUES UTILIZED: Clinical interview, review of medical records, staff consultation and behavioral observation, mini mental status exam 2 standard version, clock drawing and verbal fluency assessment. EXAMINATION FINDINGS: The patient was alert and cooperative with the assessment. He accurately described events surrounding his admission. There is no evidence of aphasia. His thoughts are logical and goal oriented. There is no evidence of thought disorder. He does not report hallucinations or suicidal ideation. He describes his symptoms to include tiredness and fatigue along with sleep disturbance. Cognition is described as within normal limits. Performance on the MMSE 2 brief version is within normal limits with a raw score of 14 of 16. The patient had difficulty with immediate recall with only remembering 1/3 items after a brief time delay and distraction. He was oriented to time and place. The initial registration was within normal limits. [address] [address] CONSULTATION Name: PAXTON PEDERSEN Room #: 510-P [facility] IN [facility]#: [id number] Admission: 11/11/17 Attend Phys: Rico Calvin MD Discharge: Date of : 41 Report #: [id number] His performance on the MMSE 2 standard version is within normal limits with a raw score of 27 of 30. The patient had difficulty with visual spatial construction. Performance in verbal fluency was extremely low. Letter fluency was a T score of 19, which is less than 1%. Category fluency was a T score of 27, which is at the 1st percentile. Total fluency was a T score of 19, which is less than 1%. While the patient is alert and oriented, deficits in verbal fluency suggest executive dysfunction. DIAGNOSTIC IMPRESSION: Neurocognitive disorder-- extent to be determined, primarily in executive functioning and immediate recall. RECOMMENDATIONS: Consider speech therapy consultation for assistance with cognitive rehabilitation. The patient may benefit from a more comprehensive neuropsychological assessment following discharge to clarify cognitive functioning. He was independent with all instrumental activities of daily living prior to his admission. While the patient is alert and oriented, he is presenting with deficits in immediate recall and executive functioning, which may interfere with a complete return to his previous level of independence. Neuropsychological testing following his discharge will be helpful in determining his strengths and weaknesses and ability to return to previous level of functioniong. Thank you very much for allowing me to provide the consultation on this patient. <ELECTRONICALLY SIGNED> By: Adi Washburn, PhD 11/17/17 1844 1401 27 Adi Washburn, PhD /nt
--- NOTE | ~2017-11-11 | H ---
[facility] [place] [address] HISTORY AND PHYSICAL Name: PAXTON PEDERSEN Room #: 510-P ADM IN M.R.#: [id number] Admission: 11/11/17 Attend Phys: Rico Calvin MD Discharge: Date of : 41 Report #: [id number] THIS REPORT FOR: //name// CC: Rico Burr DATE OF SERVICE: 11/11/2017 HISTORY OF PRESENT ILLNESS: The patient is a 76-year-old white male who was originally admitted to [facility] on 11/03/2017 for elective coronary artery bypass grafting x 2 for severe aortic stenosis and atrial valve replacement on 11/03/2017. On 11/06/2017, he underwent permanent pacemaker placement for complete heart block. Postop, he developed fever and ileus. He had a functional decline with medical complexity with generalized debilitation. He has had multiple customer relations consultant physicians involved. He has now been admitted for acute in-hospital inpatient rehabilitation. PAST MEDICAL HISTORY: Diabetes mellitus, coronary artery disease, and hypertension. HABITS: No history of tobacco or alcohol abuse. MEDICATIONS: Please see the full medication listing. This list includes his herbals, vitamins and supplements. ALLERGIES: STATINS. SOCIAL HISTORY: Lives in a house with his , three entry steps, all living on one level. Has a ____ room in the basement with 13 stairs, but does not need to go down to utilize. No assistive device, premorbidly. REVIEW OF SYSTEMS: Did not offer any current complaints of chest pain, shortness of breath or abdominal discomfort. No focal extremity pain complaints. Complains of overall generalized weakness. PHYSICAL EXAMINATION: GENERAL: He is a pleasant 76-year-old white male in no obvious distress. VITAL SIGNS: Last recorded temperature 98.2, pulse 64, respirations 18, blood pressure 114/41 He is alert, pleasant, oriented 1.5 liters nasal cannula. HEENT: Facies are symmetric. CHEST: Sounded clear to auscultation, maybe some mild diffuse decrease. CARDIAC: Regular rate and rhythm. He has a midline sternal incision that appears to be intact. ABDOMEN: Bowel sounds positive, nontender. GENITOURINARY AND RECTAL: Deferred. NEUROLOGIC: He has functional range of motion of both upper extremities. [address] [address] HISTORY AND PHYSICAL Name: PAXTON PEDERSEN Room #: 510-P [facility] IN ..#: [id number] Admission: 11/11/17 Attend Phys: Rico Calvin MD Discharge: Date of : 41 Report #: [id number] Strength is grade 4-/5. DTRs are trace to 1. LOWER EXTREMITIES: No focal calf swelling. EXTREMITIES: Functional range of motion. Strength is a grade 4-/5. Tone appeared to be intact. Sit to stand is contact guard. He has been min assist for short distance ambulation. ASSESSMENT: A 76-year-old white male with the following problem list: 1. Medical complex with generalized debilitation. 2. Gait instability. 3. Coronary artery disease status post coronary artery bypass grafting x 2. 4. Aortic stenosis, status post aortic valve replacement on 11/03/2017. 5. Complete heart block status post permanent pacemaker on 11/06/2017. 6. Ileus, which has resolved. 7. Hypertension. 8. Hyperlipidemia. 9. Type 2 diabetes mellitus. PLAN: The patient is admitted for acute in-hospital inpatient rehabilitation. From a postadmission physician evaluation perspective, there are no relevant changes since the preadmission screening. Please see the above review of prior and current medical and functional conditions and comorbidities. Please see the patient's previous and current functional status. As far as risk of complications, the patient has multiple medical comorbidities as noted above. Initial plan of care involves the interdisciplinary acute inpatient rehabilitation program with goal of maximizing the patient's functional independence, so that he can hopefully return back to his prior living situation. Measurable functional goals would be for the patient to become modified independent with transfers, mobility, ADLs, so he can return back to his prior living situation. Prognosis is reasonably good with estimated length of stay probably fairly short around 7-10 days. Potential barriers would include his multiple medical comorbidities and decreased functional status. <ELECTRONICALLY SIGNED> By: Rico Calvin MD 11/12/17 1216 0828 [id number] Rico Calvin MD /nt
--- NOTE | ~2017-11-11 | PLAN ---
[facility] [place] [address] REHAB UNIT PLAN OF CARE Name: PAXTON PEDERSEN Room #: 510-P [facility] IN M.R.#: [id number] Admission: 11/11/17 Attend Phys: Rico Calvin MD Discharge: 11/18/17 Date of : 41 Report #: [id number] THIS REPORT FOR: //name// CC: Rico Calvin Angela Powellick DATE OF SERVICE: 11/14/2017 PROGRESS NOTE AND OVERALL PLAN OF CARE SUBJECTIVE: The patient is seen back today in followup. He was in no distress. Last recorded temperature 36.7, pulse 62, respirations 18, and blood pressure 119/63. No focal calf swelling. Sternal incision appears to be intact as well as his left arm incision over the forearm. He is on 2.5 liters nasal cannula. Transfers are contact guard. Gait is min assist 250 feet without a device. In occupational therapy, lower body dressing is min assist. ASSESSMENT: 1. Medical complexity with generalized debilitation. 2. Gait instability. 3. Coronary artery disease, status post coronary artery bypass grafting x 2. 4. Aortic stenosis, status post aortic valve replacement on 11/13/2017. 5. Complete heart block, status post permanent pacemaker on 11/06/2017. 6. Ileus, resolved. 7. Hypertension. 8. Hyperlipidemia. 9. Type 2 diabetes mellitus. PLAN: The overall plan of care is based on the preadmission screen, post-admission physician evaluation, and information garnered from therapy assessments. 1. Estimated length of stay is probably around 7-10 days, pending progress. 2. Medical prognosis is reasonably good. 3. Anticipated interventions includes the interdisciplinary acute inpatient rehabilitation program with the goal of maximizing his functional independence, so that he can hopefully return back to his prior living situation. PT and OT are involved with rehab nursing assisting regarding medication management, skin care prophylaxis, bowel and bladder issues, and nursing education. The interdisciplinary acute rehabilitation team is involved as well as the window covering sales consultant physicians. 4. Anticipated functional outcomes would be for the patient to become modified independent with transfers, mobility, and ADLs, and hopefully wean off his oxygen and ideally be ambulatory without gait aids or at least using a walker to return back to the home setting. 5. Discharge destination would be back to the home setting at least at a walker level where [place] [address] REHAB UNIT PLAN OF CARE Name: PAXTON PEDERSEN Room #: 510-P [facility] IN .R.#: [id number] Admission: 11/11/17 Attend Phys: Rico Calvin MD Discharge: 11/18/17 Date of : 41 Report #: [id number] 6. Expected therapy by discipline includes PT and OT 1-1/2 hours per day each five days a week throughout the duration of the acute inpatient rehabilitation stay. <ELECTRONICALLY SIGNED> By: Rico Calvin MD 11/18/17 1440 0918 [id number] Rico Calvin MD /BUCKY
[2017-11-11] MEDS ORDERED: NOVOLOG100 UNIT/1 SUBQ (15:13)
[2017-11-11] MEDS ORDERED: PACERONE 200 M200 M1 PO (15:13)
[2017-11-11 16:30] VITALS: BP 104/55
[2017-11-11 19:44] VITALS: BP 114/41
[2017-11-12 06:17] LABS: HEMATOCRIT 32.1 % (42.0-52.0); HEMOGLOBIN 10.8 gm/dL (14.0-18.0); MCH 31.3 pg (26.0-34.0); MCHC 33.5 g/dL (28.0-37.0); MCV 93.3 fL (80.0-100.0); RBC 3.44 mil/uL (4.50-6.00); RDW 13.7 % (10.5-14.5); WBC 8.3 thou/uL (4.0-11.0)
[2017-11-12 06:25] LABS: CALCIUM 8.1 mg/dL (8.5-10.1); CREATININE 1.2 mg/dL (0.7-1.3); POTASSIUM 3.5 mmol/L (3.5-5.1)
[2017-11-12 07:30] VITALS: BP 109/51
[2017-11-12 10:40] VITALS: BP 123/59
[2017-11-12 21:23] VITALS: BP 100/48
[2017-11-13 08:45] VITALS: BP 102/49
[2017-11-13 20:56] VITALS: BP 98/51
[2017-11-14 07:30] VITALS: BP 119/63
[2017-11-14 19:42] VITALS: BP 99/53
[2017-11-15 03:19] LABS: ABSOLUTE NEUTROPHILS 10.7 thou/uL (1.4-8.2); BASOPHILS 0.4 % (0.0-2.0); EOSINOPHILS 3.4 % (0.0-3.0); HEMATOCRIT 34.3 % (42.0-52.0); HEMOGLOBIN 11.2 gm/dL (14.0-18.0); LYMPHOCYTES 9.4 % (24.0-44.0); MCH 30.7 pg (26.0-34.0); MCHC 32.7 g/dL (28.0-37.0); MCV 93.9 fL (80.0-100.0); MONOCYTES 6.5 % (1.0-8.0); POLYS 80.3 % (36.0-66.0); RBC 3.65 mil/uL (4.50-6.00); WBC 13.3 thou/uL (4.0-11.0)
[2017-11-15 03:25] LABS: CALCIUM 8.6 mg/dL (8.5-10.1); CREATININE 1.3 mg/dL (0.7-1.3); PLATELET COUNT 319 thou/uL (150-400)
[2017-11-15 07:45] VITALS: BP 102/63
[2017-11-15 20:18] VITALS: BP 130/63
[2017-11-16 08:05] VITALS: BP 109/65
[2017-11-16 19:10] VITALS: BP 92/54
[2017-11-17 07:31] VITALS: BP 114/34
[2017-11-17 19:52] VITALS: BP 97/57
[2017-11-18 04:29] LABS: ABSOLUTE NEUTROPHILS 10.8 thou/uL (1.4-8.2); BASOPHILS 1.3 % (0.0-2.0); EOSINOPHILS 3.8 % (0.0-3.0); HEMATOCRIT 34.8 % (42.0-52.0); HEMOGLOBIN 11.6 gm/dL (14.0-18.0); LYMPHOCYTES 10.9 % (24.0-44.0); MCH 31.1 pg (26.0-34.0); MCHC 33.4 g/dL (28.0-37.0); MCV 92.9 fL (80.0-100.0); MONOCYTES 5.3 % (1.0-8.0); PLATELET COUNT 363 thou/uL (150-400); POLYS 78.7 % (36.0-66.0); RBC 3.75 mil/uL (4.50-6.00); RDW 14.1 % (10.5-14.5); WBC 13.8 thou/uL (4.0-11.0)
[2017-11-18 04:37] LABS: CREATININE 1.5 mg/dL (0.7-1.3); MAGNESIUM 1.8 mg/dL (1.8-2.4); POTASSIUM 3.9 mmol/L (3.5-5.1)
[2017-11-18 07:30] VITALS: BP 102/68
[2017-11-18] MEDS ORDERED: NOVOLOG100 UNIT/1 SUBQ (09:02)
[2017-11-18] MEDS ORDERED: LASIX 40 MG TAB40 M2 PO (09:02)
[2017-11-18] MEDS ORDERED: ACIDOPHILUS1 EAC4 PO (09:02)
[2017-11-18] MEDS ORDERED: PACERONE 200 M200 M1 PO (09:02)
[2017-11-18] MEDS ORDERED: POTASSIUM20 PO (09:02)
[2017-11-18] MEDS ORDERED: ATORVASTATIN CA40 MG PO (09:02)
[2017-11-18] MEDS ORDERED: ASPIR 8181 MG PO (09:02)
[2017-11-18] MEDS ORDERED: ERGOCALCIF50000 UNIT PO (09:02)
[2017-11-18 10:14] VITALS: BP 102/68
[2017-11-18 10:41] VITALS: BP 102/68
== END 2017-11-18 12:15 | disposition home or self-care (01) | DRG 948 ==
LOC: ENTRNSPT 11-18 12:08 → EDTRNSPTSTS 11-18 12:11
PROVIDERS: Nurse Practitioner; Nurse Practitioner Family
DX: R53.81 Other malaise (principal); I50.30 Unspecified diastolic (congestive) heart failure; K56.7 Ileus, unspecified; I35.0 Nonrheumatic aortic (valve) stenosis; I25.10 Atherosclerotic heart disease of native coronary artery without angina pectoris; R26.9 Unspecified abnormalities of gait and mobility; E78.5 Hyperlipidemia, unspecified; R19.7 Diarrhea, unspecified; R11.0 Nausea; I11.0 Hypertensive heart disease with heart failure; R41.9 Unspecified symptoms and signs involving cognitive functions and awareness; E11.649 Type 2 diabetes mellitus with hypoglycemia without coma; Z95.1 Presence of aortocoronary bypass graft; Z95.2 Presence of prosthetic heart valve; Z95.0 Presence of cardiac pacemaker; Z88.8 Allergy status to other drugs, medicaments and biological substances; Z79.4 Long term (current) use of insulin; Z79.899 Other long term (current) drug therapy
CPT/HCPCS: 10112

== ENCOUNTER → 2017-12-17 | Outpatient (CLI) | payer OTHER, BC ==
[~2017-12-17] MED LIST changes: +ACIDOPHILUS1 EAC4 PO; +ASPIR 8181 MG PO; +ATORVASTATIN CA40 MG PO; +ERGOCALCIF50000 UNIT PO; +LASIX 40 MG TAB40 M2 PO; +NOVOLOG100 UNIT/1 SUBQ; +PACERONE 200 M200 M1 PO; +POTASSIUM20 PO
== END ==
LOC: RAD 13:11
DX: I25.10 Atherosclerotic heart disease of native coronary artery without angina pectoris (principal); Z95.0 Presence of cardiac pacemaker